=== PATIENT | male | born 1985 | race Two or more races ===

== ENCOUNTER 2020-05-02 13:58 | Emergency (ER) | payer OTHER ==
[~2020-05-02] VITALS: Ht 188 cm; Wt 105.2 kg
[2020-05-03] MEDS ORDERED: LEVSIN/SL0.125 MG SL (06:19)
[2020-05-03] MEDS ORDERED: CIPRO500 MG PO (06:19)
== END 2020-05-03 06:13 | disposition home or self-care (01) ==
LOC: ER 13:58
DX: K52.89 Other specified noninfective gastroenteritis and colitis (principal); R10.32 Left lower quadrant pain; Z03.818 Encounter for observation for suspected exposure to other biological agents ruled out